=== PATIENT | female | born 1965 | race Caucasian/White ===

== ENCOUNTER → 2023-02-05 | Emergency (ER) | payer OTHER ==
[~2023-02-05] MED LIST: ASPIRIN 81 MG CHEWABLE TABLET ONE; CEFTRIAXONE 1000 MG/VIAL ONE; MECLIZINE HCL 12.5 MG TAB ONE; NA CHLORIDE 0.9% 1,000 ML ONE; ONDANSETRON 4 MG/2 ML VIAL ONE; dexAMETHasone 10 MG/ML VIAL ONE
--- OUTSIDE RECORDS SUMMARY | 2023-02-05 17:51 | XMS REPORT | Continuity of Care Document ---
Author Name Unknown Address [address] [place] [address] [employer]connect Address [address] [place] [address] [place] [address] Care Team Providers Care Stage Builder Name Role Phone Unavailable Unavailable Unavailable
[2023-02-05 18:36] LABS: Protime INR 1.01
[2023-02-05 18:37] LABS: Absolute Lymphocytes (CBC) 1.3 K/uL (0.7-4.9); Hematocrit 40.5 % (36.0-45.0); MCV 86.2 fL (80-100); MPV 7.2 fL (7.6-11.3); Platelets 284 thou/uL (152-406); RBC Red Blood Cell Count 4.69 M/uL (3.86-4.86)
[2023-02-05 18:57] LABS: Specific Gravity > 1.030 (1.005-1.030); Urine Bacteria <20 /HPF (<20); Urine Bilirubin NEGATIVE (Negative); Urine Blood Negative (Negative); Urine Clarity Clear (Clear); Urine Color Colorless (Yellow); Urine Glucose 4+ (Over) (Negative); Urine Protein NEGATIVE (Negative); Urine RBC <5 /HPF (None Seen); Urine Urobilinogen Normal (Normal); Urine pH 5.5 (5.0-7.0)
[2023-02-05 19:02] LABS: Albumin 3.5 g/dL (3.4-5.0); Bilirubin Direct 0.1 mg/dL (0-0.2); Bilirubin Indirect, Calculated 0.6 mg/dL (0.2-0.8); Bilirubin Total 0.7 mg/dL (0.2-1.0); Magnesium 2.3 mg/dL (1.6-2.4); Potassium 3.9 mEq/L (3.5-5.1); Protein, Total 7.6 g/dL (6.4-8.2); Troponin High Sensitivity 3.3 pg/mL (<58.9)
--- NOTE | 2023-02-05 19:04 | RAD REPORT ---
EXAM DESCRIPTION: RAD - Chest Single View - 02/05/2023 6:36 pm CLINICAL HISTORY: COUGH Chest pain. COMPARISON: CHEST SINGLE VIEW dated 03/27/2015; CHEST PA AND LAT 2 VIEW dated 12/09/2013; CHEST SINGLE VIEW dated 12/09/2013; CHEST SINGLE VIEW dated 12/07/2013 FINDINGS: Portable technique limits examination quality. Mild interstitial pulmonary edema. The heart is upper limit normal in size. No displaced fractures. IMPRESSION: Mild CHF is possible.
--- NOTE | 2023-02-05 19:10 | RAD REPORT ---
EXAM DESCRIPTION: CT - Head Brain Wo Cont - 02/05/2023 7:04 pm CLINICAL HISTORY: DIZZINESS Headache, drowsiness COMPARISON: HEAD BRAIN W O CONTRAST dated 12/09/2013; HEAD BRAIN W O CONTRAST dated 02/22/2011 TECHNIQUE: All CT scans are performed using dose optimization technique as appropriate and may inclu de automated exposure control or mA/KV adjustment according to patient size. FINDINGS: No intracranial hemorrhage, hydrocephalus or extra-axial fluid collection.No areas of brai n edema or evidence of midline shift. The paranasal sinuses and mastoids are clear. The calvarium is intact. IMPRESSION: No acute intracranial abnormality.
--- NOTE | 2023-02-05 19:36 | ER ---
Nurse's Notes [facility] Name: Alix Vincent Age: 57 yrs Sex: Female : 1965 Arrival Date: 02/05/2023 Time: 17:47 Bed 16 Private MD: Diagnosis: Benign paroxysmal vertigo, unspecified ear;Dizziness and giddiness;UTI/ Urinary tract infection, site not specified Presentation: 02/05 17:57 Chief complaint: Patient states: Dizziness since last Saturday, about 10 days ago. nj1 Getting worse, but it does exacerbates when bending over or moving head a certain way. Prescribed meclizine by PCP the day after but has not have any significant relief, last dose yesterday. Coronavirus screen: Vaccine status: Patient reports receiving the 2nd dose of the covid vaccine. Ebola Screen: Patient denies travel to an Ebola-affected area in the 21 days before illness onset. Initial Sepsis Screen: Does the patient meet any 2 criteria? HR > 90 bpm. No. Patient's initial sepsis screen is negative. Does the patient have a suspected source of infection? No. Patient's initial sepsis screen is negative. Risk Assessment: Do you want to hurt yourself or someone else? Patient reports no desire to harm self or others. Onset of symptoms was January 26, 2023. 17:57 Method Of Arrival: Ambulatory nj 17:57 Acuity: [place] 3 nj1 Historical: - Allergies: 18:00 metformin; nj1 - PMHx: 18:00 Asthma; Diverticulitis; Hypertension; Kidney stones; neuropathy; Rheumatoid Arthritis; nj1 Diabetes mellitus; Depressive disorder; - PSHx: 18:00 Lumpectomy, malina; nj1 - Immunization history:: Client reports receiving the 2nd dose of the Covid vaccine. - Social history:: Smoking status: Patient denies any tobacco usage or history of. - Family history:: not pertinent. Screenin:02 [facility] ED Fall Risk Assessment (Adult) History of falling in the last 3 months, db including since admission No falls in past 3 months (0 pts) Confusion or Disorientation No (0 pts) Intoxicated or Sedated No (0 pts) Impaired Gait No (0 pts) Mobility Assist Device Used No (0 pt) Altered Elimination No (0 pt) Score/Fall Risk Level 0 - 2 = Low Risk Oriented to surroundings, Maintained a safe environment. Abuse screen: Denies threats or abuse. Denies injuries from another. Nutritional screening: No deficits noted. Tuberculosis screening: No symptoms or risk factors identified. Assessment: 18:55 Reassessment: Patient appears in no apparent distress at this time. Patient and/or db family updated on plan of care and expected duration. Pain level reassessed. Patient is alert, oriented x 3, equal unlabored respirations, skin warm/dry/pink. PT TO CT. Vital Signs: 17:57 BP 135 / 88; Pulse 107; Resp 18; Temp 98.4; Pulse Ox 98% on R/A; Weight 90.72 kg; nj1 Height 5 ft. 2 in. ; 18:45 BP 126 / 75; Pulse 98; Resp 16; Pulse Ox 98% on R/A; db 17:57 Body Mass Index 36.58 (90.72 kg, 157.48 cm) [facility] ED Course: 17:51 Patient arrived in ED. mr 18:00 Triage completed. [facility] 18:01 Arm band placed on right wrist. ms1 18:06 Jm Hardwick MD is Attending Physician. [facility] 18:23 Inserted saline lock: 20 gauge in left wrist, using aseptic technique. Blood collected. zm 18:25 Denise Vines, RN is Primary Nurse. db 18:26 Lipase Sent. zm 18:26 Basic Metabolic Panel Sent. zm 18:26 CBC with Diff Sent. zm 18:26 LFT's Sent. zm 18:26 Magnesium Sent. zm 18:26 NT PRO-BNP Sent. zm 18:26 PT-INR Sent. zm 18:26 Troponin HS Sent. zm 18:38 XRAY Chest (1 view) In Process Unspecified. EDMS 18:55 Client placed on continuous cardiac and pulse oximetry monitoring. NIBP monitoring db applied. 18:55 EKG done, reviewed by Jm Hardwick MD. db 19:02 Patient has correct armband on for positive identification. Bed in low position. Call db light in reach. Side rails up X 1. 19:05 CT Head Brain wo Cont In Process Unspecified. EDMS 19:35 Yayo Barney MD is Referral Physician. [facility] 19:50 Carotid Artery Bilateral In Process Unspecified. EDMS 20:34 Sarah Enciso MD is Referral Physician. sebastian Administered Medications: 18:35 Drug: NS 0.9% IV 1000 ml IV at 1 bolus Per protocol; 1000 mL bolus Route: IV; Rate: 1 db bolus; Site: left hand; 18:35 Drug: Meclizine PO 50 mg PO once Route: PO; db 18:38 Drug: Ondansetron IVP 4 mg IVP once; over 2 minutes Route: IVP; Site: left hand; db 21:46 Drug: Decadron - Dexamethasone IVP 10 mg IVP once Route: IVP; Site: left hand; nw1 21:47 Drug: Rocephin IV 1 grams IV at per protocol once; Given slow IV push per pharmacy nw1 instructions Route: IV; Rate: per protocol; Site: left hand; 21:47 Drug: Aspirin PO Chewable Tablet 81 mg PO once Route: PO; nw1 Outcome: 19:35 Discharge ordered by MD. cortes 21:48 Patient left the ED. nw1 Signatures: Dispatcher [employer] EDMS Jm Hardwick MD MD cha Rivera, Mary, Reg Reg mr Racquel Jiang Danielle, RN RN db Cecy Guaman RN RN nj1 Deysi Montoya RN RN nw1
--- NOTE | 2023-02-05 19:36 | EDPHYS ---
Physician Documentation [facility] Name: Alix Vincent Age: 57 yrs Sex: Female : 1965 Arrival Date: 02/05/2023 Time: 17:47 Bed 16 Private MD: ED Physician Jm Hardwick HPI: 02/05 19:29 This 57 yrs old Female presents to ER via Ambulatory with complaints of Dizziness. sebastian 19:29 The patient presents with dizziness, sense of spinning. Onset: The symptoms/episode sebastian began/occurred 4 day(s) ago. Context: occurred at home, occurred while the patient was sitting, just prior to the episode the patient experienced no apparent symptoms. Modifying factors: The symptoms are alleviated by holding head still, the symptoms are aggravated by movement of head. Associated signs and symptoms: Pertinent positives: nausea. Severity of symptoms: At their worst the symptoms were mild moderate in the emergency department the symptoms are unchanged. Patient's baseline: Neuro: alert and fully oriented. Historical: - Allergies: 18:00 metformin; nj1 - PMHx: 18:00 Asthma; Diverticulitis; Hypertension; Kidney stones; neuropathy; Rheumatoid Arthritis; nj1 Diabetes mellitus; Depressive disorder; - PSHx: 18:00 Lumpectomy, malina; nj1 - Immunization history:: Client reports receiving the 2nd dose of the Covid vaccine. - Social history:: Smoking status: Patient denies any tobacco usage or history of. - Family history:: not pertinent. ROS: 19:29 Constitutional: Negative for fever, chills, and weight loss, ENT: Negative for injury, sebastian pain, and discharge, Neck: Negative for injury, pain, and swelling, Cardiovascular: Negative for chest pain, palpitations, and edema, Respiratory: Negative for shortness of breath, cough, wheezing, and pleuritic chest pain, Abdomen/GI: Negative for abdominal pain, nausea, vomiting, diarrhea, and constipation, Back: Negative for injury and pain, : Negative for injury, bleeding, discharge, and swelling, MS/Extremity: Negative for injury and deformity, Skin: Negative for injury, rash, and discoloration, Neuro: Negative for headache, weakness, numbness, tingling, and seizure, Psych: Negative for depression, anxiety, suicide ideation, homicidal ideation, and hallucinations, Allergy/Immunology: Negative for hives, rash, and allergies, Endocrine: Negative for neck swelling, polydipsia, polyuria, polyphagia, and marked weight changes, 19:29 Eyes: Negative for acute changes, 19:29 Neuro: Positive for dizziness, Exam: 19:29 Constitutional: This is a well developed, well nourished patient who is awake, alert, sebastian and in no acute distress. Head/Face: Normocephalic, atraumatic. ENT: Nares patent. No nasal discharge, no septal abnormalities noted. Tympanic membranes are normal and external auditory canals are clear. Oropharynx with no redness, swelling, or masses, exudates, or evidence of obstruction, uvula midline. Mucous membranes moist. Neck: Trachea midline, no thyromegaly or masses palpated, and no cervical lymphadenopathy. Supple, full range of motion without nuchal rigidity, or vertebral point tenderness. No Meningismus. Chest/axilla: Normal chest wall appearance and motion. Nontender with no deformity. No lesions are appreciated. Cardiovascular: Regular rate and rhythm with a normal S1 and S2. No gallops, murmurs, or rubs. Normal PMI, no JVD. No pulse deficits. Respiratory: Lungs have equal breath sounds bilaterally, clear to auscultation and percussion. No rales, rhonchi or wheezes noted. No increased work of breathing, no retractions or nasal flaring. Abdomen/GI: Soft, non-tender, with normal bowel sounds. No distension or tympany. No guarding or rebound. No evidence of tenderness throughout. Back: No spinal tenderness. No costovertebral tenderness. Full range of motion. Skin: Warm, dry with normal turgor. Normal color with no rashes, no lesions, and no evidence of cellulitis. MS/ Extremity: Pulses equal, no cyanosis. Neurovascular intact. Full, normal range of motion. Neuro: Awake and alert, GCS 15, oriented to person, place, time, and situation. Cranial nerves II-XII grossly intact. Motor strength 5/5 in all extremities. Sensory grossly intact. Cerebellar exam normal. Normal gait. Psych: Awake, alert, with orientation to person, place and time. Behavior, mood, and affect are within normal limits. 19:29 Eyes: Periorbital structures: appear normal, no acute changes, Pupils: no acute changes, equal, round, and reactive to light and accomodation, Extraocular movements: intact throughout, Conjunctiva: normal, no acute changes, Corneas: are normal, no acute changes, Sclera: no appreciated abnormality, Anterior chamber: normal, no acute changes, Lids and lashes: appear normal, no acute changes, Visual baca: are intact, no acute changes, Nystagmus: nystagmus with fast component noted, bilaterally, 19:38 ECG was reviewed by the Attending Physician. [facility] Vital Signs: 17:57 BP 135 / 88; Pulse 107; Resp 18; Temp 98.4; Pulse Ox 98% on R/A; Weight 90.72 kg; nj1 Height 5 ft. 2 in. ; 18:45 BP 126 / 75; Pulse 98; Resp 16; Pulse Ox 98% on R/A; db 17:57 Body Mass Index 36.58 (90.72 kg, 157.48 cm) nj1 MDM: 18:06 Patient medically screened. sebastian 19:31 Differential diagnosis: cardiac arrhythmia, CVA, generalized weakness, head injury, sebastian hypovolemia, idiopathic dizziness, near-syncope, vertigo. Data reviewed: vital signs, nurses notes, lab test result(s), EKG, radiologic studies, CT scan, doppler, plain films. Consideration of Admission/Observation Escalation of care including admission/observation considered. I considered the following discharge prescriptions or medication management in the emergency department Medications were administered in the Emergency Department. See MAR. Independent interpretation of the following test(s) in the Emergency Department EKG: See my EKG interpretation above. Test considered but Not performed: MRI: no mri brain. Historians other than the Patient: pt well informed. Care significantly affected by the following chronic conditions: Diabetes, Hypertension, Obesity, asthma, diverticulitis, kidney stones, ra. Counseling: I had a detailed discussion with the patient and/or guardian regarding the historical points, exam findings, and any diagnostic results supporting the discharge/admit diagnosis, lab results, radiology results, the need for outpatient follow up, for definitive care, a family practitioner, a neurologist. 02/05 18:08 Order name: Basic Metabolic Panel; Complete Time: 19:06 sebastian 02/05 18:08 Order name: CBC with Diff; Complete Time: :06 sebastian 02/05 18:08 Order name: LFT's; Complete Time: :06 sebastian 02/05 18:08 Order name: Magnesium; Complete Time: 19:06 [facility] 02/05 18:08 Order name: NT PRO-BNP; Complete Time: 19:06 [facility] 02/05 18:08 Order name: PT-INR; Complete Time: 19:06 [facility] 02/05 18:08 Order name: Troponin HS; Complete Time: 19:06 [facility] 02/05 18:08 Order name: Urinalysis w/ reflexes; Complete Time: 19:06 [facility] 02/05 18:08 Order name: Lipase; Complete Time: 19:06 [facility] 02/05 19:07 Order name: Urine Culture [facility] 02/05 18:08 Order name: XRAY Chest (1 view); Complete Time: 19:06 [facility] 02/05 18:08 Order name: CT Head Brain wo Cont; Complete Time: 19:33 [facility] 02/05 19:13 Order name: Carotid Artery Bilateral; Complete Time: 20:11 EDMS 02/05 18:08 Order name: EKG; Complete Time: 18:09 [facility] 02/05 18:08 Order name: Cardiac monitoring; Complete Time: 18:43 [facility] 02/05 18:08 Order name: EKG - Nurse/Tech; Complete Time: 19:03 [facility] 02/05 18:08 Order name: IV Saline Lock; Complete Time: 18:26 [facility] 02/05 18:08 Order name: Labs collected and sent; Complete Time: 18:26 [facility] 02/05 18:08 Order name: O2 Per Protocol; Complete Time: 18:26 [facility] 02/05 18:08 Order name: O2 Sat Monitoring; Complete Time: 18:26 [facility] EC:38 Rate is 100 beats/min. Rhythm is regular. QRS [place] is Normal. RI interval is normal. [facility] QRS interval is normal at 482 msec. QT interval is prolonged at 482 msec. No Q waves. T waves are Normal. No ST changes noted. Clinical impression: NSR w/ Non-specific ST/T Changes and No evidence of ischemia. Administered Medications: 18:35 Drug: NS 0.9% IV 1000 ml IV at 1 bolus Per protocol; 1000 mL bolus Route: IV; Rate: 1 db bolus; Site: left hand; 18:35 Drug: Meclizine PO 50 mg PO once Route: PO; db 18:38 Drug: Ondansetron IVP 4 mg IVP once; over 2 minutes Route: IVP; Site: left hand; db 21:46 Drug: Decadron - Dexamethasone IVP 10 mg IVP once Route: IVP; Site: left hand; nw1 21:47 Drug: Rocephin IV 1 grams IV at per protocol once; Given slow IV push per pharmacy nw1 instructions Route: IV; Rate: per protocol; Site: left hand; 21:47 Drug: Aspirin PO Chewable Tablet 81 mg PO once Route: PO; nw1 Disposition Summary: 02/05/23 19:35 Discharge Ordered Notes: Location: Home sebastian Problem: new sebastian Symptoms: have improved sebastian Condition: Stable sebastian Diagnosis - Benign paroxysmal vertigo, unspecified ear sebastian - Dizziness and giddiness sebastian - UTI/ Urinary tract infection, site not specified sebastian Followup: sebastian - With: Private Physician - When: 2 - 3 days - Reason: Recheck today's complaints, Continuance of care, Re-evaluation by your physician Followup: sebastian - With: Yayo Barney MD - When: 1 - 2 days - Reason: Recheck today's complaints, Re-evaluation by your physician Followup: sebastian - With: Sarah Enciso MD - When: 1 - 2 days - Reason: Recheck today's complaints, Re-evaluation by your physician Discharge Instructions: - Discharge Summary Sheet sebastian - Benign Positional Vertigo sebastian - Dizziness sebastian - Urinary Tract Infection, Adult sebastian - Vertigo sebastian - Urinary Tract Infection, Adult, [id number] sebastian - Aspirin and Your Heart sebastian - Dizziness, [id number] [facility] Forms: - Medication Reconciliation Form [facility] - Thank You Letter [facility] - Antibiotic Education sebastian - Prescription Opioid Use sebastian - Patient Portal Instructions [facility] - Leadership Thank You Letter [facility] Prescriptions: - ondansetron 4 mg Oral Tablet,disintegrating - take 1 tablet ORAL route every 6 hours as needed for nausea and vomiting; 20 sebastian tablet; Refills: 0, Product Selection Permitted - Cipro 250 mg Oral tablet - take 1 tablet ORAL route every 12 hours; 14 tablet; Refills: 0, Product sebastian Selection Permitted - Meclizine 25 mg Oral tablet - take 1 tablet ORAL route every 6 hours As needed; 30 tablet; Refills: 0, [facility] Product Selection Permitted - Medrol (Carter) 4 mg Oral Tablets, Dose Pack - take 1 tablet ORAL route as directed - follow package instructions; 1 packet; sebastian Refills: 0, Product Selection Permitted Signatures: Dispatcher [employer] EDMS Jm Hardwick MD MD cha Benton, Danielle, RN RN db Cecy Guaman, RN RN nj1 Deysi Montoya RN RN nw1 Corrections: (The following items were deleted from the chart) 19:13 19:06 Extrem Venous W Compression [id number] ordered. EDMS EDMS
--- NOTE | 2023-02-05 20:04 | RAD REPORT ---
EXAM DESCRIPTION: - CP - 02/05/2023 7:48 pm CLINICAL HISTORY: dizzy Headache, drowsiness, CVA symptomology COMPARISON: THYROID PARA PAROTID GLAND dated 12/21/2010 TECHNIQUE: Real-time sonographic evaluation of both carotid systems was performed. Doppler interroga tion was performed with waveform tracing bilaterally. FINDINGS: Normal high resistance waveforms are noted in both external carotid arteries. The common c arotid arteries and internal carotid arteries show normal low resistance waveforms. No significant plaque formation is seen. Peak systolic and end diastolic velocity values and the ICA/ CCA ratios are in the non-hemodynamically significant range. Antegrade flow seen in both vertebral arteries. IMPRESSION: No significant atherosclerotic changes noted. No evidence of a hemodynamically significant stenosis.
[2023-02-05 23:21] VITALS: BP 126/75; TEMP 98.4; O2SAT 98
--- NOTE | 2023-02-06 12:51 | EKG ---
Test Date: 2023-02-05 Test Time: 18:53:45 Photolithographer: MARGARET MEASUREMENT RESULTS: Intervals: Rate: 100 FL: 166 QRSD: 78 QT: 374 QTc: 482 [place]: P: 65 FL: 166 QRS: 59 T: 56 INTERPRETIVE STATEMENTS: Normal sinus rhythm Prolonged QT Abnormal ECG Compared to ECG 05/25/2015 16:55:28 Prolonged QT interval now present T-wave abnormality no longer present Electronically Signed On 02-06-23 12:48:59 DIE TRIMMER by Kuldeep Deras
== END ==
LOC: ER 17:47
DX: H81.10 Benign paroxysmal vertigo, unspecified ear (principal); N39.0 Urinary tract infection, site not specified; E11.9 Type 2 diabetes mellitus without complications; I10 Essential (primary) hypertension; Z91.09 Other allergy status, other than to drugs and biological substances
CPT/HCPCS: 85025; 81001; 80048; 36415; 83735; 85610; 80076; 84484; 83690; 83880; 70450; 71045; 93880; J8597; J1100; J2405; J7030; J0696; 93005; 96374; 96375; 99284